=== PATIENT | female | born 1970 | race Caucasian/White ===

== ENCOUNTER → 2021-04-30 | Outpatient (CLI) | payer OTHER | LOC: RAD 14:04 | DX: M54.50 Low back pain, unspecified (principal); M47.816 Spondylosis without myelopathy or radiculopathy, lumbar region; M47.814 Spondylosis without myelopathy or radiculopathy, thoracic region; R93.7 Abnormal findings on diagnostic imaging of other parts of musculoskeletal system; Z98.1 Arthrodesis status | CPT/HCPCS: 72072; 72110 ==

== ENCOUNTER 2021-05-07 09:34 | Inpatient (IN) | payer OTHER ==
[~2021-05-07] VITALS: Ht 165.1 cm; Wt 59.0 kg
[2021-05-07 10:37] LABS: HEMOGLOBIN 11.6 gm/dl (12.3-15.3); RED BLOOD COUNT 3.94 M/UL (4.00-5.10); WHITE BLOOD COUNT 8.1 K/UL (4.5-11.0)
[2021-05-07 11:07] LABS: BUN/CREATININE RATIO 23 (0-10)
[2021-05-07 12:04] LABS: BORDETELLA PARAPERTUSSIS Not Detected (Not Detectd); BORDETELLA PERTUSSIS Not Detected (Not Detectd); CHLAMYDIA PNEUMONIAE Not Detected (Not Detectd); CORONAVIRUS HKU1 Not Detected (Not Detectd); CORONAVIRUS NL63 Not Detected (Not Detectd); CORONAVIRUS OC43 Not Detected (Not Detectd); CORONOAVIRUS 229E Not Detected (Not Detectd); HUMAN METAPNEUMOVIRUS Not Detected (Not Detectd); HUMAN RHINOVIRUS/ENTEROVIRUS Not Detected (Not Detectd); INFLUENZA A Not Detected (Not Detectd); INFLUENZA B Not Detected (Not Detectd); MYCOPLASMA PNEUMONIAE Not Detected (Not Detectd); PARAINFLUENZA VIRUS 1 Not Detected (Not Detectd); PARAINFLUENZA VIRUS 2 Not Detected (Not Detectd); PARAINFLUENZA VIRUS 3 Not Detected (Not Detectd); PARAINFLUENZA VIRUS 4 Not Detected (Not Detectd); RESPIRATORY SYNCYTIAL VIRUS Not Detected (Not Detectd)
[2021-05-07 13:09] LABS: SARS-CoV-2 NOT DETECTED (Not Detectd)
[2021-05-07] MEDS ORDERED: MEDROL DOSEPAK 24 MG PO (17:04)
[2021-05-07] MEDS ORDERED: BACTRIM DS TAB1 EACH PO (17:05)
[2021-05-07] MEDS ORDERED: SEROQUEL50 MG PO (17:06)
[2021-05-07] MEDS ORDERED: KENALOG CREAM 015 GM TOP (17:06)
[2021-05-07] MEDS ORDERED: VRAYLAR1.5 MG PO (17:07)
[2021-05-07] MEDS ORDERED: TYLENOL EXTRA500 MG PO (17:07)
[2021-05-07] MEDS ORDERED: GABAPENTIN300 MG PO (17:07)
[2021-05-07] MEDS ORDERED: IBU400 MG PO (17:08)
[2021-05-07] MEDS ORDERED: LASIX20 MG PO (17:09)
[2021-05-07] MEDS ORDERED: BUPRENORPHIN-N1 EACH SL (17:09)
[2021-05-07 23:48] LABS: HEMOGLOBIN 9.2 gm/dl (12.3-15.3); RED BLOOD COUNT 3.22 M/UL (4.00-5.10); WHITE BLOOD COUNT 3.9 K/UL (4.5-11.0)
[2021-05-08 14:50] LABS: HEMOGLOBIN 10.3 gm/dl (12.3-15.3)
[2021-05-08 14:53] LABS: RED BLOOD COUNT 3.56 M/UL (4.00-5.10); WHITE BLOOD COUNT 5.1 K/UL (4.5-11.0)
[2021-05-09 09:13] LABS: COMPLEMENT C3, SERUM 56 mg/dL (82-167); COMPLEMENT C4, SERUM 15 mg/dL (12-38)
[2021-05-10 04:00] LABS: HEMOGLOBIN 9.5 gm/dl (12.3-15.3); RED BLOOD COUNT 3.44 M/UL (4.00-5.10)
[2021-05-10 04:01] LABS: WHITE BLOOD COUNT 3.7 K/UL (4.5-11.0)
[2021-05-10 04:32] LABS: BUN/CREATININE RATIO 18 (0-10)
[2021-05-11 05:41] LABS: HEMOGLOBIN 8.7 gm/dl (12.3-15.3); RED BLOOD COUNT 3.1 M/UL (4.00-5.10)
[2021-05-11 05:59] LABS: BUN/CREATININE RATIO 19 (0-10)
[2021-05-11 14:11] LABS: ANTI-DSDNA ANTIBODIES 6 IU/mL (0-9); ANTICHROMATIN ANTIBODIES <0.2 AI (0.0-0.9)
[2021-05-11 17:11] LABS: ANTIMYELOPEROXIDASE (MPO) ABS <9.0 U/mL (0.0-9.0); ANTIPROTEINASE 3 (PR-3) ABS <3.5 U/mL (0.0-3.5); ATYPICAL PANCA <1:20 titer (Neg:<1:20); CYTOPLASMIC (C-ANCA) <1:20 titer (Neg:<1:20); PERINUCLEAR (P-ANCA) <1:20 titer (Neg:<1:20)
[2021-05-12 07:30] LABS: HEMOGLOBIN 8.9 gm/dl (12.3-15.3); RED BLOOD COUNT 3.14 M/UL (4.00-5.10); WHITE BLOOD COUNT 3.2 K/UL (4.5-11.0)
[2021-05-12 07:39] LABS: BUN/CREATININE RATIO 19 (0-10)
[2021-05-13 10:33] LABS: BUN/CREATININE RATIO 18 (0-10)
[2021-05-14 05:55] LABS: HEMOGLOBIN 9.1 gm/dl (12.3-15.3); RED BLOOD COUNT 3.14 M/UL (4.00-5.10); WHITE BLOOD COUNT 5.4 K/UL (4.5-11.0)
[2021-05-14 06:24] LABS: BUN/CREATININE RATIO 20 (0-10)
[2021-05-14 19:08] LABS: ORGANISM ID Not indicated. (.); SPECIMEN SOURCE Urine (.); STREPTOCOCCUS PNEUMONIAE AG Negative (Negative)
--- NOTE | 2021-05-16 00:14 | NUR ---
EDUCATED PT ON RISKS AND FACTORS OF LEAVING THE FLOOR TO SMOKE. ALSO EDUCATED PT THAT THIS IS A NON-SMOKING FACILITY. PT IS NONCOMPLIANT WITH SMOKING POLICY AND CONTINUES TO LEAVE THE FLOOR TO SMOKE.
[2021-05-16 09:15] LABS: BUN/CREATININE RATIO 12 (0-10)
[2021-05-17 08:33] LABS: BUN/CREATININE RATIO 16 (0-10)
[2021-05-18 07:53] LABS: HEMOGLOBIN 7.4 gm/dl (12.3-15.3); RED BLOOD COUNT 2.62 M/UL (4.00-5.10); WHITE BLOOD COUNT 4.3 K/UL (4.5-11.0)
[2021-05-18 08:48] LABS: BUN/CREATININE RATIO 15 (0-10)
[2021-05-19 07:10] LABS: HEMOGLOBIN 8.3 gm/dl (12.3-15.3); RED BLOOD COUNT 2.79 M/UL (4.00-5.10); WHITE BLOOD COUNT 3.7 K/UL (4.5-11.0)
[2021-05-19 07:33] LABS: BUN/CREATININE RATIO 10 (0-10)
[2021-05-20 06:55] LABS: HEMOGLOBIN 8.9 gm/dl (12.3-15.3); RED BLOOD COUNT 3.03 M/UL (4.00-5.10); WHITE BLOOD COUNT 3.3 K/UL (4.5-11.0)
[2021-05-20 07:56] LABS: BUN/CREATININE RATIO 14 (0-10)
[2021-05-21 05:45] LABS: HEMOGLOBIN 9.4 gm/dl (12.3-15.3); RED BLOOD COUNT 3.21 M/UL (4.00-5.10); WHITE BLOOD COUNT 4.7 K/UL (4.5-11.0)
[2021-05-21 06:24] LABS: BUN/CREATININE RATIO 14 (0-10)
[2021-05-22 06:19] LABS: HEMOGLOBIN 8.2 gm/dl (12.3-15.3)
[2021-05-22 06:21] LABS: RED BLOOD COUNT 2.88 M/UL (4.00-5.10); WHITE BLOOD COUNT 3.4 K/UL (4.5-11.0)
[2021-05-22 06:41] LABS: BUN/CREATININE RATIO 13 (0-10)
[2021-05-23 06:30] LABS: HEMOGLOBIN 7.1 gm/dl (12.3-15.3)
[2021-05-23 06:34] LABS: RED BLOOD COUNT 2.4 M/UL (4.00-5.10); WHITE BLOOD COUNT 2.5 K/UL (4.5-11.0)
[2021-05-23 07:20] LABS: BUN/CREATININE RATIO 12 (0-10)
[2021-05-23 07:33] LABS: ANTISTREPTOLYSIN O AB 26.2 IU/mL (0.0-200.0); COMPLEMENT C3, SERUM 88 mg/dL (82-167); COMPLEMENT C4, SERUM 15 mg/dL (12-38); HBSAG SCREEN Negative (Negative); HEP B CORE AB, TOT Positive (Negative); HEP C VIRUS AB >11.0 (0.0-0.9)
[2021-05-24 04:37] LABS: HEMOGLOBIN 7.1 gm/dl (12.3-15.3); RED BLOOD COUNT 2.41 M/UL (4.00-5.10); WHITE BLOOD COUNT 2.8 K/UL (4.5-11.0)
[2021-05-24 04:57] LABS: BUN/CREATININE RATIO 13 (0-10)
[2021-05-24 12:10] LABS: ATYPICAL PANCA <1:20 titer (Neg:<1:20); CYTOPLASMIC (C-ANCA) <1:20 titer (Neg:<1:20); PERINUCLEAR (P-ANCA) <1:20 titer (Neg:<1:20)
[2021-05-24 14:10] LABS: ANTI-DSDNA ANTIBODIES 13 IU/mL (0-9)
[2021-05-25 10:23] LABS: WHITE BLOOD COUNT 3.1 K/UL (4.5-11.0)
[2021-05-25 10:28] LABS: HEMOGLOBIN 11.2 gm/dl (12.3-15.3); RED BLOOD COUNT 3.84 M/UL (4.00-5.10)
[2021-05-25 10:59] LABS: BUN/CREATININE RATIO 14 (0-10)
[2021-05-25 16:10] LABS: A/G RATIO 1.1 (0.7-1.7); ALBUMIN 2.1 g/dL (2.9-4.4); ALPHA-1-GLOBULIN 0.2 g/dL (0.0-0.4); ALPHA-2-GLOBULIN 0.5 g/dL (0.4-1.0); BETA GLOBULIN 0.7 g/dL (0.7-1.3); GAMMA GLOBULIN 0.6 g/dL (0.4-1.8); IMMUNOGLOBULIN A, QN, SERUM 139 mg/dL (87-352); IMMUNOGLOBULIN G, QN, SERUM 553 mg/dL (586-1602); IMMUNOGLOBULIN M, QN, SERUM 131 mg/dL (26-217); M-SPIKE Not Observed g/dL (Not Observed); PROTEIN, TOTAL, SERUM 4.1 g/dL (6.0-8.5)
[2021-05-26 07:35] LABS: HEMOGLOBIN 9.8 gm/dl (12.3-15.3); WHITE BLOOD COUNT 2.6 K/UL (4.5-11.0)
[2021-05-26 07:41] LABS: RED BLOOD COUNT 3.41 M/UL (4.00-5.10)
[2021-05-26 08:07] LABS: BUN/CREATININE RATIO 14 (0-10)
[2021-05-27 04:10] LABS: HEMOGLOBIN 9.8 gm/dl (12.3-15.3); RED BLOOD COUNT 3.34 M/UL (4.00-5.10); WHITE BLOOD COUNT 2.4 K/UL (4.5-11.0)
[2021-05-27 04:38] LABS: BUN/CREATININE RATIO 15 (0-10)
[2021-05-27 11:14] LABS: CREATININE, URINE 89.4 mg/dL (Not Estab.)
[2021-05-28 04:47] LABS: HEMOGLOBIN 9.9 gm/dl (12.3-15.3); RED BLOOD COUNT 3.33 M/UL (4.00-5.10); WHITE BLOOD COUNT 2.7 K/UL (4.5-11.0)
[2021-05-28 05:17] LABS: BUN/CREATININE RATIO 14 (0-10)
[2021-05-28 23:10] LABS: HEPATITIS C QUANTITATION HCV Not Detected IU/mL (.)
[2021-05-30 08:26] LABS: HEMOGLOBIN 10.9 gm/dl (12.3-15.3); WHITE BLOOD COUNT 2.4 K/UL (4.5-11.0)
[2021-05-30 08:41] LABS: RED BLOOD COUNT 3.69 M/UL (4.00-5.10)
[2021-05-30 09:15] LABS: BUN/CREATININE RATIO 13 (0-10)
[2021-06-01 06:35] LABS: HEMOGLOBIN 11.2 gm/dl (12.3-15.3); RED BLOOD COUNT 3.81 M/UL (4.00-5.10); WHITE BLOOD COUNT 2.9 K/UL (4.5-11.0)
[2021-06-01 07:04] LABS: BUN/CREATININE RATIO 12 (0-10)
[2021-06-02] MEDS ORDERED: ROCEPHIN IM/I2000 MG IV (11:11)
[2021-06-02] MEDS ORDERED: VANCOMYCIN500 MG/101 IV (11:11)
[2021-06-02] MEDS ORDERED: STIMULANT LAXA1 EACH PO (11:11)
[2021-06-02] MEDS ORDERED: POLYETHYLENE GL17 GM PO (11:11)
[2021-06-02] MEDS ORDERED: METOPROLOL SUCC50 MG PO (11:11)
[2021-06-02] MEDS ORDERED: THERAGRAN M TAB1 EA PO (11:11)
[2021-06-02] MEDS ORDERED: PERCOCET 7.5-31 EACH PO ×2 (11:21→16:37)
== END 2021-06-02 17:40 | disposition swing bed (61) | DRG 196 ==
LOC: ER1 09:34 → MED SURG 4 12:47 → CDU 12:47 → CCU 17:11 → MED SURG 4 05-11 14:41
PROVIDERS: Emergency Medicine; Internal Medicine Infectious Disease; Internal Medicine Nephrology; Internal Medicine Pulmonary Disease; Physician Assistant Medical; Registered Nurse; ADMIT Internal Medicine
PROC: B24BZZ4 Ultrasonography of Heart with Aorta, Transesophageal (ICD-10-PCS; 2021-05-07)
PROC: B548ZZA Ultrasonography of Superior Vena Cava, Guidance (ICD-10-PCS; principal; 2021-05-10)
PROC: 02HV33Z Insertion of Infusion Device into Superior Vena Cava, Percutaneous Approach (ICD-10-PCS; principal; 2021-05-10)
PROC: 30233N1 Transfusion of Nonautologous Red Blood Cells into Peripheral Vein, Percutaneous Approach (ICD-10-PCS; 2021-05-24)
DX: J84.89 Other specified interstitial pulmonary diseases (principal); G93.41 Metabolic encephalopathy; J96.21 Acute and chronic respiratory failure with hypoxia; J96.22 Acute and chronic respiratory failure with hypercapnia; M46.26 Osteomyelitis of vertebra, lumbar region; N17.9 Acute kidney failure, unspecified; E87.0 Hyperosmolality and hypernatremia; D61.818 Other pancytopenia; F11.20 Opioid dependence, uncomplicated; B19.10 Unspecified viral hepatitis B without hepatic coma; Z20.822 Contact with and (suspected) exposure to COVID-19; F17.210 Nicotine dependence, cigarettes, uncomplicated; M46.46 Discitis, unspecified, lumbar region; B19.20 Unspecified viral hepatitis C without hepatic coma; I12.9 Hypertensive chronic kidney disease with stage 1 through stage 4 chronic kidney disease, or unspecified chronic kidney disease; N18.9 Chronic kidney disease, unspecified; D63.1 Anemia in chronic kidney disease; R94.5 Abnormal results of liver function studies; E87.6 Hypokalemia; G89.29 Other chronic pain; I27.20 Pulmonary hypertension, unspecified; E78.00 Pure hypercholesterolemia, unspecified; K76.0 Fatty (change of) liver, not elsewhere classified; F10.10 Alcohol abuse, uncomplicated; F19.10 Other psychoactive substance abuse, uncomplicated; M41.86 Other forms of scoliosis, lumbar region; Z85.3 Personal history of malignant neoplasm of breast; Z90.49 Acquired absence of other specified parts of digestive tract; Z88.1 Allergy status to other antibiotic agents; Z90.13 Acquired absence of bilateral breasts and nipples; Z86.14 Personal history of Methicillin resistant Staphylococcus aureus infection; Z88.6 Allergy status to analgesic agent; Z99.81 Dependence on supplemental oxygen; Z71.6 Tobacco abuse counseling
CPT/HCPCS: ECHO; 36415; 36430; 36600; 71045; 71250; 72100; 72148; 78315; 78580; 80048; 80053; 80076; 80202; 80307; 81001; 82043; 82436; 82550; 82553; 82570; 82607; 82728; 82746; 82784; 82803; 82962; 83520; 83540; 83550; 83605; 83615; 83735; 83874; 83880; 83883; 83935; 84100; 84132; 84133; 84155; 84156; 84165; 84300; 84484; 85025; 85027; 85379; 85384; 85610; 85652; 85730; 86038; 86060; 86140; 86160; 86161; 86162; 86225; 86235; 86256; 86334; 86704; 86706; 86708; 86803; 86850; 86900; 86901; 86920; 87040; 87070; 87081; 87086; 87205; 87278; 87340; 87522; 87633; 87899; 93005; 93306; 93970; 94640; 94664; 94760; 97116-GP-CQ; 97161; 99285; A9503; A9540; C1751; J0360; J0692; J0696; J1100; J1170; J1644; J1650; J1940; J2185; J2270; J2405; J2920; J3370; J3475; J7050; J7070; P9016; P9047; U0002